=== PATIENT | female | born 1930 | race Caucasian/White ===

== ENCOUNTER 2016-05-24 16:27 | Inpatient (IN) | payer OTHER ==
[~2016-05-24] VITALS: Ht 162.6 cm; Wt 80.5 kg
[2016-05-24 18:02] LABS: BASOPHIL % 0.2 % (0-2); PLATELET COUNT 213 x10^3mcL (130-400); RED CELL DISTRIBUTION WIDTH 14.2 % (11.5-14.5)
[2016-05-24 18:05] LABS: CARBON DIOXIDE 27.6 mmol/L (21-32); CHLORIDE SERUM 102 mmol/L (98-107); CREATININE SERUM 0.8 mg/dL (0.6-1.0); GLUCOSE SERUM 143 mg/dL (74-106); POTASSIUM SERUM 4.2 mmol/L (3.5-5.1); SODIUM SERUM 137 mmol/L (136-145)
[2016-05-24 18:09] LABS: ALBUMIN 3.7 g/dL (3.4-5.0); ALKALINE PHOSPHATASE 124 U/L (46-116); ALT/SGPT 14 U/L (14-59); AST/SGOT 12 U/L (15-37); BILIRUBIN TOTAL 0.6 mg/dL (0.20-1.00); HDL CHOLESTEROL 57 mg/dL (40-60); LIPASE 81 IU/L (73-393); TOTAL PROTEIN, SERUM 7.1 g/dL (6.4-8.2); TRIGLYCERIDES 97 mg/dL (<150)
[2016-05-24 18:12] LABS: CHOLESTEROL 211 mg/dL (<200); CHOLESTEROL/HDL RATIO 3.7
[2016-05-24 18:20] LABS: T3 TOTAL 0.83 ng/mL
[2016-05-24 18:46] LABS: FREE T4 1.01 ng/dL (0.76-1.46); FREE THYROXINE INDEX 2.1 ug/dL (1.4-4.5); T4(THYROXINE) 6.2 ug/dL (4.7-13.3)
[2016-05-24] MEDS ORDERED: PEPCID20 MG PO (18:57)
[2016-05-24 19:00] LABS: microscopic required? YES; urine erythrocyte TRACE (NEGATIVE)
[2016-05-24 19:55] LABS: PHOSPHOROUS 3.3 mg/dL (2.5-4.9)
[2016-05-24] MEDS ORDERED: ALEVE220 MG PO (20:06)
[2016-05-24 20:11] VITALS: BP 152/80
[2016-05-25 05:53] VITALS: BP 130/52
[2016-05-25 06:13] LABS: BASOPHIL % 0.6 % (0-2); PLATELET COUNT 227 x10^3mcL (130-400); RED CELL DISTRIBUTION WIDTH 14.3 % (11.5-14.5)
[2016-05-25 06:29] LABS: CALCIUM 8.9 mg/dL (8.5-10.1); CARBON DIOXIDE 28.4 mmol/L (21-32); CHLORIDE SERUM 104 mmol/L (98-107); CREATININE SERUM 0.9 mg/dL (0.6-1.0); GLUCOSE SERUM 101 mg/dL (74-106); POTASSIUM SERUM 4.2 mmol/L (3.5-5.1); SODIUM SERUM 140 mmol/L (136-145)
[2016-05-25 09:26] VITALS: BP 110/53
[2016-05-25 13:04] VITALS: BP 111/45
[2016-05-25 17:27] VITALS: BP 108/40
[2016-05-25 22:26] VITALS: BP 129/51
[2016-05-26 06:43] LABS: PLATELET COUNT 194 x10^3mcL (130-400); RED CELL DISTRIBUTION WIDTH 13.5 % (11.5-14.5)
[2016-05-26 06:50] LABS: CALCIUM 8.8 mg/dL (8.5-10.1); CARBON DIOXIDE 27.9 mmol/L (21-32); CHLORIDE SERUM 108 mmol/L (98-107); CREATININE SERUM 0.9 mg/dL (0.6-1.0); GLUCOSE SERUM 94 mg/dL (74-106); MAGNESIUM 2.2 mg/dL (1.8-2.4); PHOSPHOROUS 3.2 mg/dL (2.5-4.9); POTASSIUM SERUM 4.4 mmol/L (3.5-5.1); SODIUM SERUM 143 mmol/L (136-145)
[2016-05-26 07:02] LABS: BASOPHIL % 2.2 % (0-2)
[2016-05-26 07:05] VITALS: BP 123/48
[2016-05-26] MEDS ORDERED: ZES10 PO (09:21)
[2016-05-26] MEDS ORDERED: LIPI10 PO (09:21)
[2016-05-26] MEDS ORDERED: MECLIZINE HCL12.5 MG PO (09:22)
[2016-05-26] MEDS ORDERED: ECO81 PO (09:22)
[2016-05-26] MEDS ORDERED: LAC PO (09:23)
[2016-05-26] MEDS ORDERED: CIPRO500 MG PO (09:24)
[2016-05-26 10:10] VITALS: BP 132/53
[2016-05-26 11:37] VITALS: BP 132/53
== END 2016-05-26 13:56 | DRG 73 ==
LOC: ED 16:27 → DU 18:47
PROVIDERS: Family Medicine; Specialist; ADMIT Family Medicine
DX: G90.9 Disorder of the autonomic nervous system, unspecified (principal); N17.0 Acute kidney failure with tubular necrosis; N39.0 Urinary tract infection, site not specified; R73.03 Prediabetes; I16.0 Hypertensive urgency; I49.9 Cardiac arrhythmia, unspecified; E78.5 Hyperlipidemia, unspecified; M16.11 Unilateral primary osteoarthritis, right hip; E66.9 Obesity, unspecified; Z68.30 Body mass index [BMI] 30.0-30.9, adult
CPT/HCPCS: 82962; 83880; 84439; 97110-GP; 97116-GP; 97530-GP; J0696; J7030; J7040; J8597; Q0092